=== PATIENT | female | born 1995 | race Two or more races ===

== ENCOUNTER 2024-12-15 12:00 | Emergency (ER) | payer BC, SELFPAY ==
[2024-12-15 12:17] VITALS: BP 131/90; PULSE 118; RESP 18; TEMP 37.2; O2SAT 98
--- NOTE | 2024-12-15 12:22 | EDNOTE_ITS ---
<Statement entered by Sol Torres MD - 12/16/24 14:06> As co-signing physician, I was present and available for consult prn. I concur with the plan and care as documented by the midlevel provider. ED Skin Abcess FB-RME/HPI General Chief complaint: Skin/Abscess/Foreign Body Stated complaint: POSSIBLE INFECTED TATTOO, HAS RASH Time Seen by Provider: 12/15/24 12:10 Source: patient Arrival date/time: 12/15/24 12:00 29-year-old female with no known medical history presents to the emergency room with a chief complaint of a rash to her left upper arm and abdomen x 2 weeks. Patient states her new tattoo got infected. Mode of arrival: ambulatory Limitations: no limitations Related Data Previous Rx's ?Medication ?Instructions ?Recorded diphenhydramine HCl 25 mg capsule 25 mg PO Q8H PRN all ergic symptoms 10/05/21 (Benadryl) #30 caps prednisone 20 mg tablet 40 mg (2 x 20 mg) PO QDAY 4 days 12/15/24 #8 tabs sulfamethoxazole 800 1 tab PO BID #14 tabs mg-trimethoprim 160 mg tablet (Bactrim DS) Allergies Allergy/AdvReac Type Severity Reaction Status Date / Time Penicillins Allergy Severe Swelling Verified 12/15/24 12:03 of Lip/Tongue/Throat Review of Systems Review of Systems Systems Reviewed: All systems reviewed, normal except as documented Constitutional Constitutional: Reports system reviewed and no additional complaints, except as documented, Denies fatigue, Denies fever(s), Denies headache(s) and Denies weakness Eyes Eyes: Reports system reviewed and no additional complaints, except as documented, Denies blurry vision, Denies change in vision and Denies itchy eyes ENT Ears, Nose, Mouth, and Throat: Reports system reviewed and no additional complaints, except as documented, Denies otalgia, Denies headache(s), Denies lip swelling, Denies nasal congestion, Denies throat swelling, Denies tongue swelling and Denies vertigo Cardiovascular Cardiovascular: Reports system reviewed and no additional complaints, except as documented, Denies chest pain, Denies dyspnea and Denies dyspnea on exertion Respiratory Respiratory: Reports system reviewed and no additional complaints, except as documented, Denies chest congestion, Denies cough, Denies dyspnea, Denies dyspnea on exertion and Denies wheezing Gastrointestinal Gastrointestinal: Reports system reviewed and no additional complaints, except as documented, Denies abdominal pain, Denies cramping, Denies nausea and Denies vomiting Genitourinary Genitourinary: Reports system reviewed and no additional complaints, except as documented Musculoskeletal Musculoskeletal: Reports system reviewed and no additional complaints, except as documented and Denies back pain Integumentary/Breasts Skin/Breast: Reports system reviewed and no additional complaints, except as documented and Denies wounds Neurologic Neurologic: Reports system reviewed and no additional complaints, except as documented, Denies confusion, Denies headache(s), Denies lack of coordination, Denies vertigo and Denies weakness Psychiatric Psychiatric: Reports system reviewed and no additional complaints, except as documented, Denies anxiety, Denies confusion, Denies depression, Denies paranoia, Denies suicidal ideation and Denies tactile hallucinations Endocrine Endocrine: Reports system reviewed and no additional complaints, except as documented and Denies fatigue Hematologic/Lymphatic Hematologic/Lymphatic: Reports system reviewed and no additional complaints, except as documented and Denies lymphadenopathy Allergic/Immunologic Allergic/Immunologic: Reports system reviewed and no additional complaints, except as documented, Denies GI upset with certain foods, Denies itchy eyes, Denies lip swelling, Denies seasonal rhinorrhea, Denies throat swelling, Denies tongue swelling, Reports urticaria and Denies wheezing Past Medical History Social History SMOKING STATUS: Never smoker ED Exam General Limitations: Present no limitations General appearance: Present alert and in no apparent distress Head Head exam: Present atraumatic Eye Eye exam: Present normal appearance, PERRL and EOMI ENT ENT exam: Present normal exam, normal oropharynx and mucous membranes moist Neck Neck exam: Present normal inspection, full ROM and trachea midline Chest Chest inspection: Present normal inspection and symmetric chest wall rise Respiratory Respiratory exam: Present normal lung sounds bilaterally; Absent respiratory distress, wheezes, stridor, accessory muscle use or prolonged expiratory phase Cardiovascular Cardiovascular exam: Present regular rate, normal rhythm and normal heart sounds Abdominal Exam Abdominal exam: Present soft and normal bowel sounds Extremities Exam Extremities exam: Present normal inspection and full ROM Back Exam Back exam: Present normal inspection and full ROM Neurological Exam Neurological exam: Present alert, oriented X3 and CN II-XII intact Psychiatric Psychiatric exam: Present normal affect and normal mood Skin Skin exam: Present warm, dry, intact and normal color Expanded Skin Exam Type of lesion: Present rash Distribution: Present neck, chest and abdomen Description: Present erythematous Course Quality Measures none Orders Category Date Time Status CBC Stat Lab 12/15/24 13:28 Completed CMP [Comprehensive Metabolic Panel] Stat Lab 12/15/24 13:28 Completed HIV (1&2) Antibody Rapid Stat Lab 12/15/24 13:28 Completed Hepatitis Acute Panel Stat Lab 12/15/24 13:28 Completed Lactate (Lactic Acid) Stat Lab 12/15/24 13:28 Completed Procalcitonin Stat Lab 12/15/24 13:28 Completed Dexamethasone Inj [Decadron Inj] Med 12/15/24 12:21 Discontinued 10 mg PO X1 ONE Famotidine [Pepcid] Med 12/15/24 12:21 Discontinued 20 mg PO X1 ONE Vital Signs Vital signs: Vital Signs Temperature 99.0 F 12/15/24 12:17 Pulse Rate 118 H 12/15/24 12:17 Respiratory Rate 18 12/15/24 12:17 Blood Pressure 131/90 H 12/15/24 12:17 Pulse Oximetry (%) 98 12/15/24 12:17 Oxygen Delivery Method Room Air 12/15/24 12:17 Skin / Abscess / Foreign Body MDM Narrative MDM Narrative:: 29-year-old female with no known medical history presents to the emergency room with a chief complaint of a rash to her left upper arm and abdomen x 2 weeks. Patient states her new tattoo got infected. Patient is hemodynamically stable and in no apparent distress. Patient got a tattoo to her left forearm 2 weeks ago. Patient states since that tattoo appointment the patient began to have a rash that initially started around the tattoo but has not spread to her left upper arm chest and abdomen. Patient states she has been dealing with this rash for the last 2 weeks and states it is very itchy. Physical examination shows an erythemic rash to the abdomen neck chest and arm. Steroids were given with some improvement to her itchiness as well as Benadryl and antihistamines. During reevaluation the itchiness is gone but the rash only mildly improved. The patient denies any shortness of breath or any respiratory distress. There is no tongue swelling lip swelling or any evidence of any anaphylactic reaction Patient was discharged and educated to follow-up with primary care provider in the next 24 to 48 hours and return to the emergency room for any evidence of worsening signs or symptoms Patient data External records reviewed:: [facility] previous records Clinical information provided by:: patient Social determinants that could affect healthcare access:: none Patient has the following chronic illnesses:: No chronic illness How is presenting disease/condition affected by chronic disease/condition?: no chronic disease Evaluation data The following diagnostics were reviewed and interpreted by me:: lab results and radiology exam(s) Lab and/or radiology exams considered but not ordered:: Labs and radiology exams considered and ordered Interpretation Summary: N/A Medications / Prescriptions Medications or Prescriptions considered but not ordered:: Medication given Medication administrations:: Medication Administration History Discontinued Medications Dexamethasone Sodium Phosphate (Dexamethasone Sod Phos Inj 10 Mg/Ml Vial) 10 mg PO X1 ONE Stop: 12/15/24 12:22 Last Admin: 12/15/24 12:44 Dose: 10 mg Documented By: OA Famotidine (Famotidine 20 Mg Tablet) 20 mg PO X1 ONE Stop: 12/15/24 12:22 Last Admin: 12/15/24 12:44 Dose: 20 mg Documented By: OA Medication given Consultations Consultation(s) initiated? (list below): No Diagnosis Skin/Abscess Differential Diagnosis: abscess of skin or subcutaneous tissue, contact dermatitis and other (Tattoo reaction) Most likely diagnosis given after review of the tests above:: Tattoo reaction Admission Indicated Admission indicated?: not indicated Admission Request Was there a request for admission?: No Disposition Plan Disposition Plan: Discharge Discharge Attestation Discharge Attestation: The patient and all family members were given an opportunity to ask questions and understood the discharge instructions. Discharge instructions specifically effects, indications for sooner follow up or return to the emergency department, and the expected course of current diagnosis. Patient condition: Stable Discharge Plan Plan Patient Disposition: HOME (Self Care) Discharge Disposition comment: Stable Prescriptions/Referrals Prescriptions/Med Rec: New prednisone 20 mg tablet 40 mg PO QDAY 4 Days Qty: 8 0RF sulfamethoxazole-trimethoprim [Bactrim DS] 800-160 mg tablet 1 tab PO BID Qty: 14 0RF No Action diphenhydramine HCl [Benadryl] 25 mg capsule 25 mg PO Q8H PRN (Reason: allergic symptoms) Qty: 30 0RF Referrals: Marquis Celeste MD [Primary Care Provider, Family Practice] - In 1 week Problem List Clinical Impression: Tattoo reaction Patient/Caregiver Discharge Instructions Additional Instructions: Please follow-up with your primary care provider in the next 24 to 48 hours Your blood work was within normal limits. There are no signs of infection. Please continue to take your Benadryl and antibiotics. For any evidence of worsening signs or symptoms return to the emergency room immediately Print Language: Kisw[place]ili Stand Alone Forms: [employer] Award Info., Patient Portal Info Letter PA/HEAD OF ACQUISITIONS Supervising Physician PA/HEAD OF ACQUISITIONS Supervising Physician: Dr. TORRES
[2024-12-15] MEDS: FAMOTIDINE 20 MG TABLET PO (12:44)
[2024-12-15] MEDS: DEXAMETHASONE SOD PHOS INJ 10 MG/ML VIAL PO (12:44)
[2024-12-15 13:39] LABS: Lactate (Lactic Acid) 1.6 mMol/L (0.4-2.0)
[2024-12-15 13:41] LABS: Basophils # (Auto) 0.0 Thou/mm3 (0.0-0.2); Basophils % (Auto) 0 % (0-2.5); Eosinophils # (Auto) 0.4 Thou/mm3 (0.0-0.5); Eosinophils % (Auto) 6 % (0-10); Hematocrit 38.9 % (36.0-46.0); Hemoglobin 12.8 g/dL (12.0-16.0); Immature Granulocytes Auto 0.01 Thou/mm3 (0.00-0.00); Lymphocytes # (Auto) 0.8 Thou/mm3 (1.0-4.8); Lymphocytes % (Auto) 13 % (10-50); Mean Corpuscular HGB Conc 32.9 g/dl (31.0-37.0); Mean Corpuscular Hemoglobin 29.2 pg (25.0-35.0); Mean Corpuscular Volume 89 fL (80-100); Monocytes # (Auto) 0.4 Thou/mm3 (0.0-0.8); Monocytes % (Auto) 6 % (0-12); Neutrophils # (Auto) 4.6 Thou/mm3 (1.8-7.7); Neutrophils % (Auto) 74 % (37-80); Nucleated Red Blood Cell # 0.00 Thou/mm3 (0.00-0.00); Nucleated Red Blood Cell % 0 /100 WBC (0); Platelet Count 236 Thou/mm3 (140-440); RDW Standard Deviation 43.5 fL (36.4-46.3); Red Blood Count 4.39 Miln/mm3 (4.00-5.20); White Blood Count 6.3 Thou/mm3 (3.6-11.0)
[2024-12-15 14:06] LABS: Alanine Aminotransferase 24 U/L (10-49); Albumin, Serum 5.1 gm/dL (3.5-5.0); Albumin/Globulin Ratio 2.6 (1.2-2.2); Alkaline Phosphatase 65 U/L (46-116); Anion Gap 11 (7-16); Aspartate Amino Transferase 22 U/L (0-34); BUN/Creatinine Ratio 9 Ratio (12-20); Bilirubin,Total 0.5 mg/dL (0.3-1.2); Blood Urea Nitrogen 7 mg/dL (9-23); Calcium 9.3 mg/dL (8.3-10.6); Calcium (Corrected) 9.3 mg/dL (8.5-10.1); Carbon Dioxide 23.0 mMol/L (20.0-31.0); Chloride 104 mMol/L (98-107); Creatinine (Component) 0.8 mg/dL (0.6-1.3); Estimated Creatinine Clearance 88.9 mL/min (>60); Globulin 2.0 gm/dL (2.3-3.5); Glucose 147 mg/dL (74-106); Osmolality,Calculated 276 (275-295); Potassium 4.0 mMol/L (3.4-5.1); Procalcitonin 0.08 ng/ml (0.0-0.49); Sodium 138 mMol/L (136-145); Total Protein 7.1 gm/dL (5.7-8.2); eGFR > 60 See Note
[2024-12-15 14:22] LABS: HIV (1&2) Antibody Rapid Non-Reactive
[2024-12-15 14:42] LABS: Hepatitis A Antibody IgM Non Reactive (Non React); Hepatitis B Core Antibody IgM Non Reactive (Non React); Hepatitis B Surface Antigen Non Reactive (Non React); Hepatitis C Antibody Non Reactive (Non React)
== END 2024-12-15 15:06 | disposition home or self-care (01) ==
PROVIDERS: Emergency Provider Nurse Practitioner Family; PCP Family Medicine
DX: L23.9 Allergic contact dermatitis, unspecified cause (principal)
CPT/HCPCS: 36415; 80053; 80074; 83605; 84145; 85025; 86703; 99281; J1100; A9270

== ENCOUNTER 2024-12-16 19:36 | Emergency (ER) | payer BC, SELFPAY ==
[2024-12-16 20:09] VITALS: BP 145/90; PULSE 97; RESP 18; TEMP 36.8; O2SAT 98
--- NOTE | 2024-12-16 20:21 | PD.EDALLER ---
ED Allergic Reaction RME/HPI General Chief complaint: Allergic Reaction Stated complaint: ALLERGIC REACTION RASH Time Seen by Provider: 12/16/24 20:12 Arrival date/time: 12/16/24 19:36 29-year-old female reports with complaints of persistent allergic reaction. Patient was seen 1 day ago for reaction to a tattoo that she received. Patient states that she started taking the prednisone yesterday and she noticed the bumps spread and got worse since a little itchy. Patient states that she has been using Benadryl which seems to help with the itching she denies any tongue swelling throat closing shortness of breath fever or chills. Patient was concerned for the spread of rash Limitations: no limitations Related Data Previous Rx's ?Medication ?Instructions ?Recorded diphenhydramine HCl 25 mg capsule 25 mg PO Q8H PRN allergic symptoms 10/05/21 (Benadryl) #30 caps prednisone 20 mg tablet 40 mg (2 x 20 mg) PO QDAY 4 days 12/15/24 #8 tabs sulfamethoxazole 800 1 tab PO BID #14 tabs 12/15/24 mg-trimethoprim 160 mg tablet (Bactrim DS) Allergies Allergy/AdvReac Type Severity Reaction Status Date / Time Penicillins Allergy Severe Swelling Verified 12/16/24 19:41 of Lip/Tongue/Throat Review of Systems Constitutional Constitutional: Denies chills, Denies fever(s) and Denies headache(s) Eyes Eyes: Denies eye discharge and Denies irritation ENT Ears, Nose, Mouth, and Throat: Denies headache(s), Denies throat swelling, Denies tongue swelling and Denies vertigo Cardiovascular Cardiovascular: Denies chest pain and Denies dyspnea Respiratory Respiratory: Denies cough and Denies dyspnea Integumentary/Breasts Skin/Breast: Reports erythema, Reports pruritus and Reports rash Neurologic Neurologic: Denies headache(s) and Denies vertigo Hematologic/Lymphatic Hematologic/Lymphatic: Denies easy bleeding and Denies easy bruising Allergic/Immunologic Allergic/Immunologic: Denies throat swelling and Denies tongue swelling Past Medical History Social History SMOKING STATUS: Never smoker ED Exam General Limitations: Present no limitations General appearance: Present alert and in no apparent distress Head Head exam: Present atraumatic Eye Eye exam: Present normal appearance, PERRL and EOMI ENT ENT exam: Present normal exam, normal oropharynx, mucous membranes moist and other (Airway patent no tongue swelling) Neck Neck exam: Present normal inspection, full ROM and trachea midline Chest Chest inspection: Present normal inspection and symmetric chest wall rise Respiratory Respiratory exam: Present normal lung sounds bilaterally Cardiovascular Cardiovascular exam: Present regular rate, normal rhythm and normal heart sounds Abdominal Exam Abdominal exam: Present soft and normal bowel sounds Extremities Exam Extremities exam: Present normal inspection and full ROM Back Exam Back exam: Present normal inspection and full ROM Neurological Exam Neurological exam: Present alert, oriented X3 and CN II-XII intact Psychiatric Psychiatric exam: Present normal affect and normal mood Skin Skin exam: Present warm, dry, intact, normal color and rash (Diffuse erythematous papules noted over the left forearm at tattoo site and scattered on chest and neck no discharge) Course Quality Measures none Vital Signs Vital signs: Vital Signs Temperature 98.3 F 12/16/24 20:09 Pulse Rate 97 12/16/24 20:09 Respiratory Rate 18 12/16/24 20:09 Blood Pressure 145/90 H 12/16/24 20:09 Pulse Oximetry (%) 98 12/16/24 20:09 Oxygen Delivery Method Room Air 12/16/24 20:09 Allergic Reaction Patient data External records reviewed:: None Clinical information provided by:: patient Social determinants that could affect healthcare access:: none Patient has the following chronic illnesses:: none How is presenting disease/condition affected by chronic disease/condition?: no chronic disease Evaluation data The following diagnostics were reviewed and interpreted by me:: other (specify) (none) Lab and/or radiology exams considered but not ordered:: none Interpretation Summary: n/a Medications / Prescriptions Medications or Prescriptions considered but not ordered:: none Medication administrations:: none Consultations Consultation(s) initiated? (list below): No Diagnosis Most likely diagnosis given after review of the tests above:: Staph infection and allergic reaction Admission Indicated Admission indicated?: not indicated Admission Request Was there a request for admission?: No Disposition Plan Disposition Plan: Discharge Discharge Attestation Discharge Attestation: The patient and all family members were given an opportunity to ask questions and understood the discharge instructions. Discharge instructions specifically effects, indications for sooner follow up or return to the emergency department, and the expected course of current diagnosis. Patient condition: Stable Discharge Plan Plan Patient Disposition: HOME (Self Care) Prescriptions/Referrals Prescriptions/Med Rec: No Action diphenhydramine HCl [Benadryl] 25 mg capsule 25 mg PO Q8H PRN (Reason: allergic symptoms) Qty: 30 0RF prednisone 20 mg tablet 40 mg PO QDAY 4 Days Qty: 8 0RF sulfamethoxazole-trimethoprim [Bactrim DS] 800-160 mg tablet 1 tab PO BID Qty: 14 0RF Problem List Clinical Impression: Allergic reaction, Tattoo reaction, Contact dermatitis Patient/Caregiver Discharge Instructions Additional Instructions: Finish the antibiotic and the prednisone as directed keep the area clean and dry you may take oral Benadryl or use topical Benadryl for itching. Return to the emergency department or call 911 if you experience tongue swelling throat or facial swelling Print Language: Citizen [place] Stand Alone Forms: [employer] Award Info., Patient Portal Info Letter
== END 2024-12-16 20:36 | disposition home or self-care (01) ==
LOC: SERX 20:48
PROVIDERS: Emergency Provider Emergency Medicine; PCP Family Medicine
DX: L25.9 Unspecified contact dermatitis, unspecified cause (principal); B95.8 Unspecified staphylococcus as the cause of diseases classified elsewhere
CPT/HCPCS: 99282